=== PATIENT | female | born 1980 | race Caucasian/White ===

== ENCOUNTER 2020-01-21 14:18 | Outpatient (RCR) | payer MEDICAID | END 2020-04-13 | disposition home or self-care (01) | LOC: WSST | DX: R47.1 Dysarthria and anarthria (principal); R41.841 Cognitive communication deficit; G80.9 Cerebral palsy, unspecified; F79 Unspecified intellectual disabilities ==

== ENCOUNTER 2024-02-27 09:54 | Outpatient (RCR) | payer MEDICAID | END 2024-03-09 | disposition home or self-care (01) | LOC: WSST | DX: R13.10 Dysphagia, unspecified (principal) ==